=== PATIENT | male | born 1990 ===

== ENCOUNTER 2019-11-29 10:32 | Outpatient (CLI) | payer BC ==
--- NOTE | 2019-11-29 12:59 | MRI ---
MRI LEFT HAND: DATE: 11/29/2019. PROVIDED CLINICAL HISTORY: Ulnar-sided hand pain without recent injury. FINDINGS: Regional marrow and muscular signal appear normal. Alignment appears anatomic. Joint spaces appear preserved. No regional joint effusion is evident. The dorsal extensor and volar flexor tendons demonstrate an intact MRI appearance. There is no signi ficant regional tenosynovial fluid. The MCP and IP joint complexes appear intact. The courses of the regional major neurovascular structures appear unremarkable. IMPRESSION: Unremarkable MRI of the left hand. POS: [facility]
== END 2019-11-29 10:33 | disposition home or self-care (01) ==
LOC: SCSMRI 10:32
PROVIDERS: ATTEND Orthopaedic Surgery
DX: M79.642 Pain in left hand (principal)